=== PATIENT | male | born 1945 | race Caucasian/White ===

== ENCOUNTER → 2018-12-11 | Outpatient (CLI) | payer OTHER | LOC: BHFA 15:30 | PROVIDERS: ATTEND Internal Medicine Interventional Cardiology | DX: R00.2 Palpitations (principal) ==

== ENCOUNTER → 2018-12-14 | Outpatient (CLI) | payer OTHER | LOC: BHFA 13:00 | PROVIDERS: ATTEND Internal Medicine Cardiovascular Disease | DX: R00.2 Palpitations (principal) ==

== ENCOUNTER 2018-12-21 05:58 | Day surgery (SDC) | payer OTHER ==
[2018-12-21] MEDS ORDERED: ceFAZolin 2 GM/DEXTROSE 100 ML IV ONE (06:05)
[2018-12-21] MEDS ORDERED: LIDOCAINE 1% 2 ML INJ ID PRN (06:07)
[2018-12-21] MEDS ORDERED: LR 1,000 ML IV ONE (06:07)
[2018-12-21] MEDS ORDERED: BUPIVACAINE 0.25% 30 ML SDV ONE (07:09)
[2018-12-21] MEDS ORDERED: BUPIVACAINE/EPI 0.5% 30 ML SDV ONE (07:09)
[2018-12-21] MEDS ORDERED: LIDOCAINE 1% 300 MG/30 ML SDV ONE (07:09)
[2018-12-21] MEDS ORDERED: EPINEPHrine 1 MG/ML INJ ONE (07:10)
--- NOTE | 2018-12-21 07:11 | PDHPUP ---
History & Physical Update H&P update statement: This history and physical update is based on an assessment of the patient which was completed after admission or registration (within 24 hours), but prior to the surgery/procedure. H&P update: H&P reviewed & patient examined ([facility] site marked in pre-op), no change in patient's condition since H&P completed
[2018-12-21] MEDS ORDERED: MIDAZOLAM 2 MG/2 ML VIAL IVP ONE (07:19)
--- NOTE | 2018-12-21 07:20 | PDANEPAE ---
ANE Past Medical History - Cardiovascular History Hx Hypertension: Yes Hx Arrhythmias: Yes Hx Chest Pain: No Hx Coronary Artery / Peripheral Vascular Disease: No Hx CHF / Valvular Disease: No Hx Palpitations: Yes Cardiovascular History Comment: PVC'S - Pulmonary History Hx COPD: No Hx Asthma/Reactive Airway Disease: No Hx Recent Upper Respiratory Infection: No Hx Oxygen in Use at Home: No Hx Sleep Apnea: No Sleep Apnea Screening Result - Last Documented: Positive - Neurologic History Hx Cerebrovascular Accident: No Hx Seizures: No Hx Dementia: No - Endocrine History Hx Diabetes: No - Renal History Hx Renal Disorders: No - Liver History Hx Hepatic Disorders: No - Neurological & Psychiatric Hx Hx Neurological and Psychiatric Disorders: No - Cancer History Hx Cancer: Yes Cancer History Comment: PROSTATE - Congenital Disorder History Hx Congenital Disorders: No - GI History Hx Gastrointestinal Disorders: Yes Gastrointestinal History Comment: TOUCH OF GERD WILL TAKE. OTC - Other Health History Other Health History: NEG - Chronic Pain History Chronic Pain: Yes (RT ING AREA) - Surgical History Prior Surgeries: PROSTATECTOMY 11/2015. T&A ANE Review of Systems Review of Systems: - Exercise capacity METS (RN): 4 METS ANE Patient History - Allergies Allergies/Adverse Reactions: No Known Allergies Allergy (Unverified 12/13/18 10:05) - Home Medications Home Medications: Amlodipine Besylate DAILY 12/13/18 [Last Taken Unknown] Aspirin 81mg (*) HS 12/13/18 [Last Taken Unknown] Atorvastatin Calcium HS 12/13/18 [Last Taken Unknown] Herbals/Supplements -Info Only DAILY 12/13/18 [Last Taken Unknown] Lisinopril DAILY 12/13/18 [Last Taken Unknown] - NPO status NPO Since - Liquids (Date): 12/19/18 NPO Since - Liquids (Time): 00:00 NPO Since - Solids (Date): 12/20/18 NPO Since - Solids (Time): 16:00 - Smoking Hx Smoking Status: Former smoker ANE Labs/Vital Signs - Vital Signs Blood Pressure: 152/89 Heart Rate: 87 Respiratory Rate: 16 O2 Sat (%): 94 Height: 195.58 cm Weight: 102.058 kg ANE Physical Exam - Airway Neck exam: FROM Mallampati Score: Class 2 Mouth exam: normal dental/mouth exam - Pulmonary Pulmonary: no respiratory distress - Cardiovascular Cardiovascular: regular rate and rhythym - ASA Status ASA Status: II ANE Anesthesia Plan Anesthesia Plan: MAC (with sedation)
[2018-12-21] MEDS ORDERED: PROPOFOL/EMULSION 500 MG/50 ML BOTTLE IV ONE (07:26)
[2018-12-21] MEDS ORDERED: fentaNYL 100 MCG/2 ML INJ ONE (07:26)
[2018-12-21] MEDS ORDERED: PROPOFOL 200 MG/20 ML VIAL ONE (07:26)
[2018-12-21] MEDS ORDERED: DEXAMETHASONE 4 MG/ML VIAL ONE ×2 (07:27)
[2018-12-21] MEDS ORDERED: METOCLOPRAMIDE 10 MG/2 ML VIAL ONE (07:27)
[2018-12-21] MEDS ORDERED: LIDOCAINE 2% 100 MG/5 ML SYR ONE (07:27)
[2018-12-21] MEDS ORDERED: NALOXONE HCL 0.4 MG/ML INJ IVP PRN (08:46)
[2018-12-21] MEDS ORDERED: fentaNYL 100 MCG/2 ML INJ IVP PRN (08:46)
[2018-12-21] MEDS ORDERED: ONDANSETRON 4 MG/2 ML VIAL IVP PRN (08:46)
[2018-12-21] MEDS ORDERED: ALBUTEROL 3 ML DEYVIAL IH PRN (08:46)
[2018-12-21] MEDS ORDERED: HYDROCODONE/APAP 5/325 TAB PO PRN (08:46)
--- NOTE | 2018-12-21 08:47 | POSTANESTH ---
Post Anesthetic Evaluation Cardiovascular Status: Similar to Pre-Op Cond Respiratory Status: Similar to Pre-op Cond. Level of Consciousness/Mental Status: Mildly Sleepy, Arousable Pain Control: Adequate, Prn Tx Ordered Nausea/Vomiting Control: Adequate, Prn Tx Ordered Complications Possibly Related to Anesthesia: None Noted
[2018-12-21] MEDS ORDERED: OXYCODONE/APAP 5/325 TAB PO PRN (08:49)
--- NOTE | 2018-12-21 08:49 | POSTOPPROG ---
Post Op Note Date of Operation: 12/21/18 Surgeon: Eran Watson (, FACS) Anesthesiologist: Jaime Marshall MD Anesthesia: Other (Specify) (MAC/regional block) Pre-op Diagnosis: RIH Procedure: Lictenstein repair RIH, indirect Inf/Abcess present in the surg proc area at time of surgery?: No EBL: Minimal (10 ml)
[2018-12-21] MEDS ORDERED: HYDROCODONE/APAP 5/325 TAB ONE (09:48)
[2018-12-21 09:51] VITALS: BP 134/95
--- NOTE | 2018-12-21 11:03 | GOP ---
DATE OF OPERATION: 12/21/2018 SURGEON: Eran Watson MD ANESTHESIA: Monitored anesthesia care combined with a regional block. ANESTHESIOLOGIST: Harvinder Marshall MD PREOPERATIVE DIAGNOSIS: Right inguinal hernia. POSTOPERATIVE DIAGNOSIS: Indirect right inguinal hernia. PROCEDURE PERFORMED: Open repair of right inguinal hernia with mesh ([place]). FINDINGS: ESTIMATED BLOOD LOSS: 25 mL or less. DESCRIPTION OF PROCEDURE: After informed consent was obtained, the patient was brought to the operat ing room and placed supine. The right lower abdomen was prepped and draped in the usual fashion. Pa tient was under moderate sedation. Before proceeding, a time-out and identification of the patient w as performed. A regional field block was established with a mixture of 0.25% Marcaine and 1% lidocaine infiltrating the external oblique fascial layer slightly medial and inferior to the anterior superior iliac crest . The planned incision site was infiltrated, incised with a scalpel obliquely over the inguinal yogi l, and carried through the skin and subcutaneous tissues and Kavin's fascia. The external oblique f ascia was opened in the direction of its fibers through the external ring. The cord structures and i lioinguinal nerve were gently mobilized from the inguinal floor and encircled with a Gay drain. The patient had 2 areas of prolapsing properitoneal fat, but no true hernia sac in the spermatic cord . These were from the cord and reduced into the preperitoneal space. The internal oblique was repaired with interrupted 3-0 Vicryl sutures holding the preperitoneal fat in place while the in guinal floor was reconstructed. Subsequently, inguinal floor reconstruction was accomplished with a polypropylene patch cut to an appropriate shape, sutured to the pubic tubercle medially with interrup noam 0 Nurolon sutures and along the inguinal ligament with interrupted 0 Nurolon sutures to the inter nal ring. The mesh was split in a keyhole fashion around the internal ring and sutured to itself and the inguinal ligament with interrupted 0 Nurolon sutures. Medially and superiorly, the mesh was sec ured to the internal oblique fascia with interrupted 0 Nurolon sutures. Laterally, the mesh was tuck ed between the internal oblique and external oblique fascias. Hemostasis appeared secure. The cord structures were returned to their anatomic position. The external oblique fascia was closed with con tinuous running 3-0 Monocryl suture. Subcutaneous tissues were approximated with 3-0 Vicryl suture. Skin was closed with 4-0 Monocryl suture in a subcuticular fashion followed by Dermabond. The patie nt was returned extubated to the recovery room in satisfactory condition. Needle, sponge, and instru ment count were correct. COMPLICATIONS: None. /[id number]/MODL
== END 2018-12-21 09:51 | disposition home or self-care (01) ==
LOC: FSGY 05:58
PROVIDERS: ATTEND Surgery
PROC: 0YQ50ZZ Repair Right Inguinal Region, Open Approach (ICD-10-PCS; principal; 2018-12-21 07:30)
DX: K40.90 Unilateral inguinal hernia, without obstruction or gangrene, not specified as recurrent (principal); R00.2 Palpitations; I10 Essential (primary) hypertension
CPT/HCPCS: C1781; J0171; J0690; J1100; J2001; J2250; J2704; J2765; J3010